=== PATIENT | female | born 1995 ===

== ENCOUNTER 2021-07-30 09:04 | Outpatient (CLI) | payer MEDICARE, MEDICAID, SELFPAY | END 2021-07-30 09:05 | disposition home or self-care (01) | LOC: ANHBWCAUD 09:12 | PROVIDERS: PCP Family Medicine; Visit Provider Family Medicine | DX: H91.93 Unspecified hearing loss, bilateral (principal); G80.9 Cerebral palsy, unspecified; F70 Mild intellectual disabilities | CPT/HCPCS: 92557; 92567 ==

== ENCOUNTER 2024-07-19 08:24 | Outpatient (CLI) | payer MEDICARE, MEDICAID, SELFPAY | END 2024-07-19 08:25 | disposition home or self-care (01) | PROVIDERS: PCP Family Medicine; Visit Provider Family Medicine | DX: H91.3 Deaf nonspeaking, not elsewhere classified (principal) | CPT/HCPCS: 92557; 92567 ==